=== PATIENT | female | born 1990 | race Caucasian/White ===

== ENCOUNTER 2017-05-31 13:09 | Observation (INO) | payer OTHER ==
[~2017-05-31] VITALS: Ht 155 cm; Wt 62.1 kg
[~2017-05-31 13:09] MED LIST: IBUP-2070 PO; PNV1TABL54 PO
[2017-05-31 13:30] VITALS: BP 113/71
== END 2017-05-31 15:40 | disposition home or self-care (01) ==
LOC: 4S 13:09
PROVIDERS: ADMIT Obstetrics & Gynecology; ATTEND Obstetrics & Gynecology
DX: O62.9 Abnormality of forces of labor, unspecified (principal); O26.893 Other specified pregnancy related conditions, third trimester; N89.8 Other specified noninflammatory disorders of vagina; Z3A.36 36 weeks gestation of pregnancy
CPT/HCPCS: 36415; 59025; 89060; G0378

== ENCOUNTER 2017-06-11 00:04 | Observation (INO) | payer OTHER ==
[~2017-06-11] VITALS: Ht 155 cm; Wt 63.3 kg
[2017-06-11 05:08] VITALS: BP 116/68
== END 2017-06-11 04:40 | disposition home or self-care (01) ==
LOC: 4S 00:04
PROVIDERS: ADMIT Obstetrics & Gynecology; ATTEND Obstetrics & Gynecology
DX: O62.9 Abnormality of forces of labor, unspecified (principal); O46.93 Antepartum hemorrhage, unspecified, third trimester; Z3A.38 38 weeks gestation of pregnancy
CPT/HCPCS: 59025; G0378

== ENCOUNTER 2017-06-11 20:20 | Inpatient (IN) | payer OTHER ==
[~2017-06-11] VITALS: Ht 155 cm; Wt 63.0 kg
[2017-06-11] MEDS ORDERED: RINGERS SOLUTION,LACTATED 1,000 ML IV ONE (21:13)
[2017-06-11] MEDS ORDERED: CITRIC ACID/SODIUM CITRATE 30 ML SOLUTION UDCUP PO PRN (21:15)
[2017-06-11] MEDS ORDERED: METOCLOPRAMIDE HCL 5 MG/ML 2 ML VIAL IVP PRN (21:15)
[2017-06-11] MEDS ORDERED: DINOPROSTONE 10 MG VAGINAL SUPPOSITORY VG ONE (22:15)
[2017-06-11 22:26] LABS: BASOPHILS % (AUTO) 0.6 % (0.0-2.0); EOSINOPHILS % (AUTO) 1.5 % (1.0-6.0); HEMATOCRIT 37.4 % (36-46); HEMOGLOBIN 13.2 g/dL (12.0-16.0); LYMPHOCYTES # (AUTO) 1.9 K/uL (1.0-4.8); LYMPHOCYTES % (AUTO) 17.3 % (22.0-44.0); MEAN CORPUSCULAR HEMOGLOBIN 31.1 pg (26.0-34.0); MEAN CORPUSCULAR HGB CONC 35.3 G/dL (31.0-37.0); MEAN CORPUSCULAR VOLUME 88 fL (80-100); MONOCYTES # (AUTO) 0.7 K/uL (0.1-1.0); MONOCYTES % (AUTO) 6.6 % (2.0-9.0); NEUTROPHILS # (AUTO) 8.2 K/uL (1.8-7.7); PLATELET COUNT (AUTO)-OB 200 K/uL (150-450); RED BLOOD CELL COUNT(AUTO) 4.25 MIL/uL (4.00-5.20); RED CELL DISTRIBUTION WIDTH 13.9 % (11.5-14.5)
[2017-06-11] MEDS: RINGERS SOLUTION,LACTATED 1,000 ML IV SCH (22:41)
[2017-06-11 23:05] VITALS: BP 111/62
[2017-06-11] MEDS ORDERED: INFLUENZA VIRUS VACCINE QVS 2017-18 (3YR+)/PF 60 MCG/0.5 ML SYRINGE IM ONE (23:45)
[2017-06-12] MEDS ORDERED: FentaNYL CITRATE-PF 100 MCG/2 ML VIAL IVP PRN (02:00)
[2017-06-12] MEDS ORDERED: ROPIVACAINE HCL/PF 0.2% 100 ML ED ONE ×2 (04:30→12:34)
[2017-06-12] MEDS ORDERED: LIDOCAINE HCL/PF 2% 5 ML VIAL ONE ×3 (04:30→14:33)
[2017-06-12] MEDS ORDERED: FentaNYL/BUPIV 0.125%/NS/PF 200 ML ED PRN (04:47)
[2017-06-12] MEDS ORDERED: DiphenhydrAMINE HCL 50 MG/ML VIAL IVP PRN (05:00)
[2017-06-12] MEDS ORDERED: NALBUPHINE HCL 10 MG/ML VIAL IVP PRN (05:00)
[2017-06-12] MEDS ORDERED: ONDANSETRON HCL 4 MG/2 ML VIAL IVP PRN (05:00)
[2017-06-12] MEDS: RINGERS SOLUTION,LACTATED 1,000 ML IV SCH (05:34)
[2017-06-12] MEDS: RINGERS SOLUTION,LACTATED 1,000 ML IV PRN ×2 (05:34→05:35)
[2017-06-12] MEDS ORDERED: OXYGEN THERAPY IH SCH (08:00)
[2017-06-12] MEDS ORDERED: OXYTOCIN 30 UNITS/LACT RINGERS 500 ML IV ONE ×2 (09:40→18:11)
[2017-06-12] MEDS ORDERED: OXYTOCIN 30 UNITS/LACT RINGERS 500 ML IV PRN (09:43)
[2017-06-12] MEDS ORDERED: -PHARMACY NOTE- MISC ONE (10:15)
[2017-06-12] MEDS ORDERED: LIDOCAINE HCL/PF 1% 30 ML VIAL INJ PRN (18:15)
[2017-06-12] MEDS ORDERED: BENZOCAINE 20%/MENTHOL 56 GM SPRAY CANISTER TP PRN (18:15)
[2017-06-12] MEDS ORDERED: LANOLIN 7 GM OINTMENT TP PRN (18:15)
[2017-06-12] MEDS ORDERED: OxyCODONE HCL/ACETAMINOPHEN 5-325 MG TABLET PO PRN ×2 (18:15)
[2017-06-12] MEDS ORDERED: GLYCERIN/WITCH HAZEL LEAF 40 PADS JAR TP PRN (18:15)
[2017-06-12] MEDS: IBUPROFEN 800 MG TABLET PO PRN ×2 (18:34→23:59)
[2017-06-12] MEDS: MAGNESIUM HYDROXIDE SUSPENSION 30 ML UDCUP PO PRN (20:43)
[2017-06-13] MEDS: IBUPROFEN 800 MG TABLET PO PRN ×2 (05:30→12:08)
[2017-06-13 06:18] LABS: BASOPHILS % (AUTO) 0.2 % (0.0-2.0); EOSINOPHILS % (AUTO) 1.6 % (1.0-6.0); HEMOGLOBIN 12.3 g/dL (12.0-16.0); LYMPHOCYTES # (AUTO) 2.2 K/uL (1.0-4.8); LYMPHOCYTES % (AUTO) 11.3 % (22.0-44.0); MEAN CORPUSCULAR HEMOGLOBIN 30.8 pg (26.0-34.0); MEAN CORPUSCULAR VOLUME 88 fL (80-100); MONOCYTES # (AUTO) 0.9 K/uL (0.1-1.0); MONOCYTES % (AUTO) 4.9 % (2.0-9.0); NEUTROPHILS # (AUTO) 15.6 K/uL (1.8-7.7); PLATELET COUNT (AUTO)-OB 174 K/uL (150-450); RED BLOOD CELL COUNT(AUTO) 3.99 MIL/uL (4.00-5.20)
[2017-06-13] MEDS: MAGNESIUM HYDROXIDE SUSPENSION 30 ML UDCUP PO PRN (08:36)
[2017-06-13] MEDS ORDERED: IBUP-2070 PO (17:05)
[2017-06-13] MEDS ORDERED: FERR-89 PO (17:06)
== END 2017-06-13 19:05 | disposition home or self-care (01) | DRG 775 ==
LOC: OBSVTOIN 20:20 → 4S 20:20
PROVIDERS: ADMIT Obstetrics & Gynecology; ATTEND Obstetrics & Gynecology
PROC: 10D07Z3 Extraction of Products of Conception, Low Forceps, Via Natural or Artificial Opening (ICD-10-PCS; principal; 2017-06-12)
PROC: 0KQM0ZZ Repair Perineum Muscle, Open Approach (ICD-10-PCS; 2017-06-12)
PROC: 3E0R3BZ Introduction of Anesthetic Agent into Spinal Canal, Percutaneous Approach (ICD-10-PCS; 2017-06-12)
PROC: 00HU33Z Insertion of Infusion Device into Spinal Canal, Percutaneous Approach (ICD-10-PCS; 2017-06-12)
PROC: 3E0234Z Introduction of Serum, Toxoid and Vaccine into Muscle, Percutaneous Approach (ICD-10-PCS; 2017-06-12)
DX: O70.1 Second degree perineal laceration during delivery (principal); Z37.0 Single live birth; Z23 Encounter for immunization; Z3A.39 39 weeks gestation of pregnancy
CPT/HCPCS: 86850; 86900; 86901; J2405; J2590; J2795; J3010; J3490; J7120